=== PATIENT | male | born 2000 | race African-American/Black ===

== ENCOUNTER 2018-02-15 21:34 | Emergency (ER) | payer OTHER ==
[~2018-02-15] VITALS: Ht 180.3 cm; Wt 68.0 kg
[2018-02-15 21:35] VITALS: BP 144/86
--- NOTE | 2018-02-16 11:25 | EKG ---
[place] [address] ELECTROCARDIOGRAM REPORT Name: KRISTINE CASTILLO [id number] Admission: 02/15/18 Attend Phys: Discharge: 02/15/18 Date of : [birth year] Report #: [id number] THIS REPORT FOR: //name// [facility] ED Test Date: 2018-02-15 Test Time: 21:41:42 Pat Name: KRISTINE CASTILLO Department: Room: Gender: M Breakfast Hostess: ROSE MARIE : 2000 Requested By: Cyndee Recio Order Number: [id number] Roselyn MD: Raudel Nolasco Measurements Intervals [place] Rate: 90 P: 101 [place]: 130 QRS: 88 QRSD: 100 T: 115 QT: 356 QTc: 436 Interpretive Statements Sinus arrhythmia Borderline Q waves in lateral leads Abnrm T, consider ischemia, anterolateral lds Baseline wander in lead(s) V3 No previous ECG available for comparison Electronically Signed On 02-16-2018 11:25:01 CDT by Raudel Nolasco [email or web address] <ELECTRONICALLY SIGNED> By: Raudel Nolasco MD, [facility] 02/16/18 1125 40 40 Raudel Nolasco MD, FACC /EPI
== END 2018-02-15 22:16 | disposition home or self-care (01) ==
LOC: M.ERS 21:34
DX: F41.9 Anxiety disorder, unspecified (principal); F17.210 Nicotine dependence, cigarettes, uncomplicated